=== PATIENT | female | born 1955 | race Caucasian/White ===

== ENCOUNTER 2024-06-05 19:00 | Observation (INO) | payer MEDICARE, OTHER ==
--- NOTE | 2024-06-05 19:30 | ED ---
General Adult HPI - General Chief complaint: Neuro Symptoms/Deficit Stated complaint: CVA Time Seen by Provider: 06/05/24 19:05 Source: patient, EMS, RN notes reviewed, old records reviewed Mode of arrival: EMS - History of Present Illness Initial comments: This is a 69-year-old female who presents from [facility] as a transfer. Patient this morning went to [facility] at 730 the morning because she had slurred speech and was a little off balance according to the . Patient has a history of A-fib and drinking. Patient was at [facility] and they thought she might be having a stroke her last known normal was last night about 10:00. Patient had a CT CT angiogram they were negative. Patient also with a CT of the chest and that was negative. Patient also at some time complained of chest pain and a workup for that was done as well. Patient states currently she has no chest pain and she has no complaints. According to the doctor when he called for transfer he stated that at 1 point the patient was bradycardic and he gave atropine and at another point the patient was hypertensive so I gave labetalol. Patient has no other compl aints at this time and she has no weakness numbness or slurred speech - Related Data Home Medications Medication Instructions Recorded Confirmed Metoprolol Tartrate [Lopressor] 50 mg PO BID 11/10/14 06/05/24 lisinopriL 40 mg PO DAILY 11/10/14 06/05/24 Docusate [Colace] 100 mg PO BID 06/05/24 06/05/24 Ketoconazole 2% Shampoo [Nizoral] 1 applic TOPICAL DAILY PRN 06/05/24 06/05/24 Krill Oil(Unknown Dose) 1 cap PO DAILY 06/05/24 06/05/24 Levothyroxine Sodium [Synthroid] 50 mcg PO AC-BRKFST 06/05/24 06/05/24 Meloxicam [Mobic] 15 mg PO DAILY 06/05/24 06/05/24 Pravastatin Sodium [Pravachol] 20 mg PO HS 06/05/24 06/05/24 Terazosin [Hytrin] 1 mg PO HS 06/05/24 06/05/24 Verapamil Sr [Isoptin Sr] 120 mg PO DAILY 06/05/24 06/05/24 buPROPion SR [Wellbutrin SR] 150 mg PO BID 06/05/24 06/05/24 busPIRone HCl [Buspar] 10 mg PO BID 06/05/24 06/05/24 methocarbamoL [Robaxin] 500 mg PO QID PRN 06/05/24 06/05/24 traZODone HCL [Desyrel] 50 mg PO HS 06/05/24 06/05/24 Allergies Allergy/AdvReac Type Severity Reaction Status Date / Time furosemide [From Lasix] Allergy Rash/Hives Verified 11/10/14 15:52 naproxen [From Naprosyn] Allergy Unknown Verified 11/10/14 15:49 aspirin AdvReac Unknown Uncoded 06/05/24 19:32 naproxen AdvReac Unknown Uncoded 06/05/24 19:32 norvasc AdvReac Unknown Uncoded 06/05/24 19:33 NSAIDs AdvReac Unknown Uncoded 06/05/24 19:32 Review of Systems ROS Statement: Those systems with pertinent positive or pertinent negative responses have been documented in the HPI. ROS Other: All systems not noted in ROS Statement are negative. 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 Patient is nontoxic and well- hydrated and is in no acute distress. ENT: Neck is soft and supple. No significant lymphadenopathy is noted. Oropharynx is clear. Moist mucous membranes. Neck has full range of motion without eliciting any pain. EYES: The sclera were anicteric and conjunctiva were pink and moist. Extraocular movements were intact and pupils were equal round and reactive to light. Eyelids were unremarkable. PULMONARY: Unlabored respirations. Good breath sounds bilaterally. No audible rales rhonchi or wheezing was noted. CARDIOVASCULAR: There is a regular rate and rhythm without any murmurs gallops or rubs. ABDOMEN: Soft and nontender with normal bowel sounds. SKIN: Skin is clear with no lesions or rashes and otherwise unremarkable. NEUROLOGIC: Patient is alert and oriented x3. Cranial nerves II through XII are grossly intact. Motor and sensory are also intact. Normal speech, volume and content. Symmetrical smile. Cerebellar exam grossly intact. Patient has an NIH of 0 MUSCULOSKELETAL: Normal extremities with adequate strength and full range of motion. No lower extremity swelling or edema. No calf tenderness. LYMPHATICS: No significant lymphadenopathy is noted PSYCHIATRIC: Normal psychiatric evaluation. Course Vital Signs 06/05/24 06/05/24 19:05 19:44 Temperature 98.2 F Pulse Rate 87 106 H Respiratory 18 17 Rate Blood Pressure 168/112 136/109 O2 Sat by Pulse 100 97 Oximetry Medical Decision Making - Medical Decision Making EKG is interpreted by myself and EKG shows atrial flutter at 90 bpm QRS is 104 QT interval 394 QTc is 441. Patient EKG shows no ST segment elevation or depression. Was pt. sent in by a medical professional or institution (, PA, STAVE GRADER, urgent care, hospital, or [facility]...) When possible be specific @ -[facility] sent the patient to us from her ER Did you speak to anyone other than the patient for history (EMS, parent, family, police, friend...)? What history was obtained from this source @ -The physician from the ER spoke with us prior to the patient's transfer and filled this in on the patient's presentation and clinical workup Did you review nursing and triage notes (agree or disagree)? Why? @ -I reviewed and agree with nursing and triage notes Were old charts reviewed (outside hosp., previous admission, EMS record, old EKG, old radiological studies, urgent care reports/EKG's, [facility] records)? Report findings @ -No old charts were reviewed Differential Diagnosis? @ -Differential CVA Ischemic stroke, hemorrhagic stroke, brain tumor, atypical migraine, Wernicke's encephalopathy, seizure, multiple sclerosis, meningitis, encephalitis, hypoglycemia, Guillain-Chaney, electrolytes disturbance, myasthenia gravis.... This is not meant to be an all-inclusive list differential Chest Pain: Stable Angina, Unstable Angina, STEMI, NSTEMI Aortic Dissection, Pneumothorax, Musculoskeletal, Esophageal Spasm GERD, Cholecystitis, Pancreatitis, Zoster, this is not meant to be an all-inclusive list. EKG interpreted by me (3pts min.). @ -As above X-rays interpreted by me (1pt min.). @ -None done CT interpreted by me (1pt min.). @ -None done U/S interpreted by me (1pt. min.). @ -None done What testing was considered but not performed or refused? (CT, X-rays, U/S, labs)? Why? @ -None What meds were considered but not given or refused? Why? @ -None Did you discuss the management of the patient with other professionals (professionals i.e. , PA, STAVE GRADER, lab, RT, psych nurse, social media content specialist, sas etl developer, teacher, aoc plans intelligence officer chief, patient case manager)? Give summary @ -I spoke with sound physicians agreed to admit the patient admit the patient wrote admitting orders Was smoking cessation discussed for >3mins.? @ -No Was critical care preformed (if so, how long)? @ -No Were there social determinants of health that impacted care today? How? (Homelessness, low income, unemployed, alcoholism, drug addiction, transportation, low edu. Level, literacy, decrease access to med. care, detention, rehab)? @ -No Was there de-escalation of care discussed even if they declined (Discuss DNR or withdrawal of care, Hospice)? DNR status @ -No What co-morbidities impacted this encounter? (DM, HTN, Smoking, COPD, CAD, Cancer, CVA, ARF, Chemo, Hep., AIDS, mental health diagnosis, sleep apnea, morbid obesity)? @ -None Was patient admitted / discharged? Hospital course, mention meds given and route, prescriptions, significant lab abnormalities, going to OR and other pertinent info. @ -I reviewed the CT brain and CT angio of the head and neck as well as x-rays and lab work from the other facility. All of which were relatively negative patient did have an alcohol at 13 when she arrived yesterday in the morning. There is documentation that the patient had a bradycardic episode she was given atropine and then later the patient was given labetalol. Patient currently has an NIH of 0 Undiagnosed new problem with uncertain prognosis? @ -No Drug Therapy requiring intensive monitoring for toxicity (Heparin, Nitro, Insulin, Cardizem)? @ -No Were any procedures done? @ -No Diagnosis/symptom? @ -TIA Acute, or Chronic, or Acute on Chronic? @ -Acute Uncomplicated (without systemic symptoms) or Complicated (systemic symptoms)? @ -Default Side effects of treatment? @ -No Exacerbation, Progression, or Severe Exacerbation? @ -No Poses a threat to life or bodily function? How? (Chest pain, USA, [place], pneumonia, PE, COPD, DKA, ARF, appy, cholecystitis, CVA, Diverticulitis, Homicidal, Suicidal, threat to staff... and all critical care pts) @ -Yes this can lead to a stroke and significant morbidity or mortality Diagnosis/symptom? @ -Alcohol abuse Acute, or Chronic, or Acute on Chronic? @ -Acute Uncomplicated (without systemic symptoms) or Complicated (systemic symptoms)? @ -Complicated Side effects of treatment? @ -None Exacerbation, Progression, or Severe Exacerbation] @ -No Poses a threat to life or bodily function? @ -No Diagnosis/symptom? @ -Hypertension Acute, or Chronic, or Acute on Chronic? @ -Acute Uncomplicated (without systemic symptoms) or Complicated (systemic symptoms)? @ -Complicated Side effects of treatment? @ -None Exacerbation, Progression, or Severe Exacerbation] @ -No Poses a threat to life or bodily function? @ -No Diagnosis/symptom? @ -Bradycardia Acute, or Chronic, or Acute on Chronic? @ -Acute Uncomplicated (without systemic symptoms) or Complicated (systemic symptoms)? @ -Complicated Side effects of treatment? @ -None Exacerbation, Progression, or Severe Exacerbation] @ -No Poses a threat to life or bodily function? @ -No - Lab Data Lab Results 06/05/24 Range/Units 19:44 Troponin I <0.012 (0.000-0.034) ng/mL Disposition Clinical Impression: Transient cerebral ischemia Disposition: ADMITTED IP TO THIS HOSP Referrals: Talisha Child MD [Primary Care Provider] - 1-2 days Time of Disposition: 20:31
[2024-06-05] MEDS: hydrALAZINE HCL 20 MG/ML 1 ML VIAL IVP STA (19:47)
[2024-06-05] MEDS: HYDROmorphone 0.5 MG/0.5 ML SYRINGE IVP STA (21:02)
[2024-06-05] MEDS: ASPIRIN 325 MG TAB PO STA (21:07)
[2024-06-05] MEDS ORDERED: methocarbamoL 500 MG TAB PO PRN (22:08)
[2024-06-05] MEDS: PRAVASTATIN SODIUM 20 MG TAB PO SCH ×2 (23:21→23:27)
[2024-06-05] MEDS: busPIRone HCl 10 MG TAB PO SCH (23:21)
[2024-06-05] MEDS: buPROPion SR 150 MG TABLET.ER PO SCH (23:21)
[2024-06-05] MEDS: traZODone HCL 50 MG TAB PO SCH (23:21)
--- NOTE | 2024-06-06 01:40 | P.HPIM ---
History of Present Illness H&P Date: 06/05/24 History of present illness; Patient is a 69-year-old female with A-fib without blood thinners, von Wi llebrand's disease type unknown, hyperlipidemia, hypertension, hypothyroidism, who presents from [facility] for TIA. Patient this morning went to [facility] at 7:30 the morning because she had slurred speech and was a little off balance according to the . She could not attest to weakness greater on one side compared to another. Patient was at [facility] and they thought she might be having a stroke her last known normal was last night about 10:00 PM. Duration of symptoms difficult quantify as patient says she still feels like she cannot speak well, however she says she feels overall better than this morning. She states she has had 5 similar episodes within the last month at times resulting in slurred speech and weakness. Patient had a CT brain an CT angiogram they were negative. Patient also with a CT of the chest and that was negative. Patient also at some time complained of chest pain and a workup for that was done as well. Patient states currently she has no chest pain and she has no complaints. She was also found to be bradycardic and given atropine, and hypertension treated with labetalol. Patient has no other complaints at this time and she has no weakness numbness or slurred speech. Currently patient reports absence of fever, chills, chest pain, palpitations, diaphoresis, dyspnea, cough, abdominal pain, nausea, vomiting, constipation, diarrhea, myalgia, dizziness, headache, loss of vision, and dysuria. Spoke with the ER physician, patient admission was accepted by internal medicine service for treatment. REVIEW OF SYSTEMS: Pertinent positives and negatives noted in HPI. PHYSICAL EXAMINATION: Vitals reviewed GENERAL: Resting comfortably in bed. EYES: PERRL, no scleral injection or icterus. No vision loss HENT: Normocephalic, atraumatic, hearing grossly intact, moist mucous membranes NECK: No tracheal deviation, full range of motion. CARDIOVASCULAR: S1 and S2 present. Irregular rhythm. No murmurs, rubs, or gallops. PULMONARY: Chest is clear to auscultation, no wheezing, rhonchi, or crackles. ABDOMEN: Soft, nontender, nondistended. No palpable organomegaly. MUSCULOSKELETAL: No apparent joint swelling and deformities. EXTREMITIES: No apparent cyanosis, clubbing. No pedal edema. NEUROLOGICAL: Alert and oriented. CN II through XII intact, 5 out of 5 strength in upper and lower extremities SKIN: No apparent rashes. ER FINDINGS: Labs significant for troponin <0.012 EKG independently interpreted showed atrial flutter, heart rate of 90, QTc 441, no ST segment elevation or depression seen, no T-wave inversions seen. Assessment and Plan: In summary, patient is a 69-year-old female with A-fib without blood thinners, von Willebrand's disease type unknown, hyperlipidemia, hypertension, hypot hyroidism, who presents from [facility] for TIA. #TIA CT head and CT angiogram head and neck unremarkable performed at [facility] - EKG with atrial flutter, heart rate of 90 HbA1c, Lipid panel ordered - Begin aspirin 81 mg qd, clopedogrel 75qd and atorvastatin 40mg qd for 21 days on d/c - continue home antihypertensive medication - echocardiogram with bubble study ordered - consult PT and OT for evaluation - NPO until speech evaluation Neurology consulted #Atrial flutter #History of A-fib Continuous cardiac monitoring Resume home medications Echocardiogram as above Chronic Medical Conditions #Essential hypertensionresume home medications tomorrow #A-fib #Von Willebrand's disease, type unknown #Hyperlidemia #Hypothyroidism #Anxiety/Depression Resume home medications DVT ppx: Subq Lovenox 40 meq daily Code status: Full code F: P.o. E: Replete as needed N: N.p.o. until speech evaluation A: Ambulatory Anticipated discharge place: Home Anticipated discharge time: 1 to 2 days Dictation was produced using [employer] dictation software. Please excuse any grammatical, word or spelling errors. I have seen and evaluated the patient today. I Discussed the case with the resident and agree with the resident's findings I edited the assessment and plan as necessary as documented in the resident's note. Past Medical History Past Medical History: Hypertension, Osteoarthritis (OA) Additional Past Medical History / Comment(s): Chavez Sullivanbrand disease History of Any Multi-Drug Resistant Organisms: None Reported Past Surgical History: Breast Surgery, Orthopedic Surgery Past Psychological History: Anxiety Smoking Status: Former smoker Past Alcohol Use History: Daily Past Drug Use History: None Reported Medications and Allergies Home Medications Medication Instructions Recorded Confirmed Type Metoprolol Tartrate [Lopressor] 50 mg PO BID 11/10/14 06/05/24 History lisinopriL 40 mg PO HS 11/10/14 06/05/24 History Docusate [Colace] 100 mg PO BID 06/05/24 06/05/24 History Ketoconazole 2% Shampoo [Nizoral] 1 applic TOPICAL DAILY PRN 06/05/24 06/05/24 History Krill Oil(Unknown Dose) 1 cap PO DAILY 06/05/24 06/05/24 History Levothyroxine Sodium [Synthroid] 50 mcg PO AC-BRKFST 06/05/24 06/05/24 History Meloxicam [Mobic] 15 mg PO DAILY 06/05/24 06/05/24 History Pravastatin Sodium [Pravachol] 20 mg PO HS 06/05/24 06/05/24 History Terazosin [Hytrin] 1 mg PO HS 06/05/24 06/05/24 History Tymlos 80mcg Injection 80 mcg SQ DIRECTED 06/05/24 06/05/24 History Verapamil Sr [Isoptin Sr] 120 mg PO HS 06/05/24 06/05/24 History buPROPion SR [Wellbutrin SR] 150 mg PO BID 06/05/24 06/05/24 History busPIRone HCl [Buspar] 10 mg PO BID 06/05/24 06/05/24 History methocarbamoL [Robaxin] 500 mg PO QID PRN 06/05/24 06/05/24 History traZODone HCL [Desyrel] 50 mg PO HS 06/05/24 06/05/24 History Allergies Allergy/AdvReac Type Severity Reaction Status Date / Time furosemide [From Lasix] Allergy Rash/Hives Verified 11/10/14 15:52 naproxen [From Naprosyn] Allergy Unknown Verified 11/10/14 15:49 aspirin AdvReac Unknown Uncoded 06/05/24 19:32 naproxen AdvReac Unknown Uncoded 06/05/24 19:32 norvasc AdvReac Unknown Uncoded 06/05/24 19:33 NSAIDs AdvReac Unknown Uncoded 06/05/24 19:32 Physical Exam Vitals: Vital Signs Temp Pulse Resp BP Pulse Ox 06/05/24 21:12 92 17 108/91 95 06/05/24 20:32 99 15 108/91 95 06/05/24 20:31 121/89 06/05/24 19:44 106 H 17 136/109 97 06/05/24 19:05 98.2 F 87 18 168/112 100 Intake and Output 06/05/24 06/05/24 06/05/24 06:59 14:59 22:59 Other: Weight 45.813 kg
[2024-06-06 02:45] LABS: Basophils % (A) 0 %; Eosinophils # (A) 0.3 k/uL (0-0.7); Eosinophils % (A) 4 %; HCT 32.9 % (34.0-46.0); HGB 10.8 gm/dL (11.4-16.0); Lymphocytes # (A) 1.1 k/uL (1.0-4.8); Lymphocytes % (A) 14 %; MCH 31.7 pg (25.0-35.0); MCHC 32.8 g/dL (31.0-37.0); MCV 96.7 fL (80.0-100.0); Mean Platelet Volume 7.9; Monocytes # (A) 0.5 k/uL (0-1.0); Monocytes % (A) 6 %; Neutrophils # (A) 6.2 k/uL (1.3-7.7); Neutrophils % (A) 75 %; Platelet Count 419 k/uL (150-450); RDW 13.5 % (11.5-15.5); WBC 8.2 k/uL (3.8-10.6)
[2024-06-06 02:54] LABS: ALT 15 U/L (4-34); AST 16 U/L (14-36); African American GFR (CKD) >90 (>60 ml/min/1.73 sqM); Albumin 3.5 g/dL (3.5-5.0); Alkaline Phosphatase 58 U/L (38-126); Anion Gap 8 mmol/L; Blood Urea Nitrogen 15 mg/dL (7-17); Calcium 9.4 mg/dL (8.4-10.2); Carbon Dioxide 23 mmol/L (22-30); Chloride 101 mmol/L (98-107); Glucose 94 mg/dL (74-99); Non-African American GFR(CKD) 79 (>60 ml/min/1.73 sqM); Potassium 4.1 mmol/L (3.5-5.1); Sodium 132 mmol/L (137-145); Total Bilirubin 0.4 mg/dL (0.2-1.3); Total Protein 5.8 g/dL (6.3-8.2)
[2024-06-06] MEDS: LEVOTHYROXINE 50 MCG TAB PO SCH (05:40)
[2024-06-06] MEDS ORDERED: ASPIRIN 325 MG TAB PO SCH (09:00)
[2024-06-06 09:08] LABS: Chol/HDL Ratio 2.22 Ratio
[2024-06-06 09:09] LABS: LDL Cholesterol,Calculated 44.7 mg/dL (0.0-131.0)
[2024-06-06] MEDS: MELOXICAM 7.5 MG TAB PO SCH (09:31)
[2024-06-06] MEDS: CLOPIDOGREL 75 MG TAB PO SCH (09:34)
[2024-06-06] MEDS: ATORVASTATIN 40 MG TAB PO SCH (09:34)
[2024-06-06] MEDS: ASPIRIN 81 MG PO SCH (09:34)
[2024-06-06] MEDS: DOCUSATE 100 MG CAP PO SCH (09:34)
[2024-06-06] MEDS: ENOXAPARIN 40 MG/0.4 ML SYRINGE SQ SCH (09:34)
[2024-06-06] MEDS ORDERED: APIXABAN 5 MG TAB PO SCH (11:45)
--- NOTE | 2024-06-06 11:59 | P.CRDCN ---
History of Present Illness Consult date: 06/06/24 Reason for Consult (text): A-fib, antiplatelet with von Willebrand History of present illness: This is a 69-year-old female patient of Dr. Sherrie Michelle with past medical history of mild to moderate mitral and aortic regurgitation, hypertension, dyslipidemia, atrial fibrillation, von Willebrand diagnosed 1987. We have been asked to evaluate the patient for atrial fibrillation with antiplatelet and von Willebrand. Patient gives history that she was on Coumadin many years ago greater than 10 years ago but due to "internal bleeding" she stopped taking the Coumadin. It is not clear whether this was advised by physician or patient did not on her own. She states she has never had a colonoscopy but has had black stools 1 to 2 weeks ago was dark stools. She was set up for colonoscopy in the past but the bleeding stopped and she decided not to go through with it. Patient presented to the hospital due to slurring of her speech that she had for a few times in the past but worst when she came in. She also states she had some shaking, nausea and chest pain. She also states that both arms were tingling. She denies history of CVA or TIA in the past. She denies abdominal pain. She states she sometimes has palpitations. She also has tightness in her chest. She sometimes has shortness of breath. No lower extremity edema. She occasionally has PND. She states she is not very active and is sedentary at home due to back problems. She is a non-smoker no caffeine abuse. She drinks at least a couple alcoholic beverages per day every day. Discussed with patient the necessity of alcohol cessation and she is not sure if she can do that but after discussion she is agreeable. Also discussed need for anticoagulation due to the atrial fibrillation and current diagnosis of TIA. Patient is willing to try anticoagulation but she verbalizes that she is sure she will have internal bleeding. Blood pressure currently 192/95, heart rate 106, pulse ox 95% on room air. Blood pressure readings have been labile. Patient has been started on aspirin and Plavix by attending. -EKG: Atrial fibrillation at 90 bpm. -Laboratory studies: Hemoglobin 10.8. Sodium 132, potassium 4.1, BUN 15 creatinine 0.78. Troponin negative x 3. Triglycerides 161, cholesterol 150, LDL 44. TSH 2.51. -Home cardiac medications: Lisinopril 40 mg at bedtime, Lopressor 50 mg twice daily, verapamil 120 mg at bedtime, also on levothyroxine. Review Of Systems: At the time of my exam: CONSTITUTIONAL: Denies fever or chills. HEENT: Denies blurred vision, vision changes, or eye pain. Denies hemoptysis CARDIOVASCULAR: Denies chest pain. Denies orthopnea. Denies PND. Denies palpitations RESPIRATORY: Denies shortness of breath. GASTROINTESTINAL: Denies abdominal pain. Denies nausea or vomiting. HEMATOLOGIC: Denies bleeding disorders. GENITOURINARY: Denies any blood in urine. SKIN: Denies puritis. Denies rash. Physical examination: Gen: This is a frail-appearing 69-year-old female VS: reviewed HEENT: Head is atraumatic, normocephalic. Pupils equal, round. Sclerae is anicteric. NECK: Supple. No JVD. LUNGS: Clear to auscultation. No wheezes or rhonchi. No intercostal retractions. HEART: Irregular rate and rhythm. Systolic ejection murmur, holosystolic murmur. ABDOMEN: Soft No tenderness. EXTREMITIES: No pedal edema. No calf tenderness. NEUROLOGICAL: Patient is awake, alert and oriented x3. Assessment: TIA Atrial fibrillation possibly permanent not on anticoagulation History of black stools Mild to moderate mitral and aortic regurgitation Hypertension, uncontrolled, labile readings Dyslipidemia Von Willebrand disease Plan: Resume patient's home cardiac medications with the following changes Lisinopril 20 mg twice daily Discontinue aspirin We will start Eliquis 5 mg twice daily once cleared by GI Recommend GI evaluation for history of black stools and need for anticoagulation Repeat CBC in the morning If patient is unable to tolerate anticoagulation, patient will be considered for Watchman procedure Alcohol cessation Obtain 2-D echocardiogram and Doppler study report Monitor blood pressure closely Further recommendations to follow based upon clinical course Thank you kindly for this consultation. Nurse practitioner note has been reviewed, I agree with documented findings and plan of care. Patient was seen and examined. Past Medical History Past Medical History: Hypertension, Osteoarthritis (OA) Additional Past Medical History / Comment(s): Von Natebrand disease History of Any Multi-Drug Resistant Organisms: None Reported Past Surgical History: Breast Surgery, Orthopedic Surgery Additional Past Surgical History / Comment(s): knee replacement, shoulder replacement Past Psychological History: Anxiety Smoking Status: Former smoker Past Alcohol Use History: Daily Past Drug Use History: None Reported Medications and Allergies Home Medications Medication Instructions Recorded Confirmed Type Metoprolol Tartrate [Lopressor] 50 mg PO BID 11/10/14 06/05/24 History lisinopriL 40 mg PO HS 11/10/14 06/05/24 History Docusate [Colace] 100 mg PO BID 06/05/24 06/05/24 History Ketoconazole 2% Shampoo [Nizoral] 1 applic TOPICAL DAILY PRN 06/05/24 06/05/24 History Krill Oil(Unknown Dose) 1 cap PO DAILY 06/05/24 06/05/24 History Levothyroxine Sodium [Synthroid] 50 mcg PO AC-BRKFST 06/05/24 06/05/24 History Meloxicam [Mobic] 15 mg PO DAILY 06/05/24 06/05/24 History Pravastatin Sodium [Pravachol] 20 mg PO HS 06/05/24 06/05/24 History Terazosin [Hytrin] 1 mg PO HS 06/05/24 06/05/24 History Tymlos 80mcg Injection 80 mcg SQ DIRECTED 06/05/24 06/05/24 History Verapamil Sr [Isoptin Sr] 120 mg PO HS 06/05/24 06/05/24 History buPROPion SR [Wellbutrin SR] 150 mg PO BID 06/05/24 06/05/24 History busPIRone HCl [Buspar] 10 mg PO BID 06/05/24 06/05/24 History methocarbamoL [Robaxin] 500 mg PO QID PRN 06/05/24 06/05/24 History traZODone HCL [Desyrel] 50 mg PO HS 06/05/24 06/05/24 History Allergies Allergy/AdvReac Type Severity Reaction Status Date / Time furosemide [From Lasix] Allergy Rash/Hives Verified 11/10/14 15:52 naproxen [From Naprosyn] Allergy Unknown Verified 11/10/14 15:49 aspirin AdvReac Unknown Uncoded 06/05/24 19:32 naproxen AdvReac Unknown Uncoded 06/05/24 19:32 norvasc AdvReac Unknown Uncoded 06/05/24 19:33 NSAIDs AdvReac Unknown Uncoded 06/05/24 19:32 Physical Exam Vitals: Vital Signs Temp Pulse Pulse Resp BP BP Pulse Ox 06/06/24 11:04 97.8 F 106 H 17 192/95 95 06/06/24 09:39 88 20 157/94 99 06/06/24 06:00 99 18 155/100 95 06/06/24 03:04 96 18 117/90 96 06/06/24 02:29 97 19 97 06/06/24 00:02 97.6 F 100 17 110/80 97 06/05/24 21:12 92 17 108/91 95 06/05/24 20:32 99 15 108/91 95 06/05/24 20:31 121/89 06/05/24 19:44 106 H 17 136/109 97 06/05/24 19:05 98.2 F 87 18 168/112 100 Intake and Output 06/05/24 06/06/24 06/06/24 22:59 06:59 14:59 Other: Weight 45.813 kg 45.813 kg Results 06/06/24 02:11 06/06/24 02:11 Cardiac Enzymes 06/05/24 06/05/24 06/06/24 Range/Units 19:44 23:04 02:11 AST (14-36) U/L Troponin I <0.012 <0.012 <0.012 (0.000-0.034) ng/mL 06/06/24 Range/Units 02:11 AST 16 (14-36) U/L Troponin I (0.000-0.034) ng/mL Lipids 06/06/24 Range/Units 02:11 Triglycerides 161.00 H (0.00-149.00) mg/dL Cholesterol 140.00 (0.00-200.00) mg/dL HDL Cholesterol 63.10 H (40.00-60.00) mg/dL Cholesterol/HDL Ratio 2.22 Ratio CBC 06/06/24 Range/Units 02:11 WBC 8.2 (3.8-10.6) k/uL RBC 3.40 L (3.80-5.40) m/uL Hgb 10.8 L (11.4-16.0) gm/dL Hct 32.9 L (34.0-46.0) % Plt Count 419 (150-450) k/uL Comprehensive Metabolic Panel 06/06/24 Range/Units 02:11 Sodium 132 L (137-145) mmol/L Potassium 4.1 (3.5-5.1) mmol/L Chloride 101 (98-107) mmol/L Carbon Dioxide 23 (22-30) mmol/L BUN 15 (7-17) mg/dL Creatinine 0.78 (0.52-1.04) mg/dL Glucose 94 (74-99) mg/dL Calcium 9.4 (8.4-10.2) mg/dL AST 16 (14-36) U/L ALT 15 (4-34) U/L Alkaline Phosphatase 58 (38-126) U/L Total Protein 5.8 L (6.3-8.2) g/dL Albumin 3.5 (3.5-5.0) g/dL Current Medications Generic Name Dose Route Start Last Admin Trade Name Freq PRN Reason Stop Dose Admin Aspirin 81 mg 06/06/24 09:00 06/06/24 09:38 Aspirin 81 Mg PO Not Given DAILY [facility] Atorvastatin Calcium 40 mg 06/06/24 09:00 06/06/24 09:34 Atorvastatin 40 Mg Tab PO 40 mg DAILY BRANDY Administration Bupropion HCl 150 mg 06/05/24 22:15 06/06/24 09:33 Bupropion Sr 150 Mg Tablet.Er PO 150 mg BID BRANDY Administration Buspirone HCl 10 mg 06/05/24 22:15 06/06/24 09:34 Buspirone Hcl 10 Mg Tab PO 10 mg BID BRANDY Administration Clopidogrel Bisulfate 75 mg 06/06/24 09:00 06/06/24 09:39 Clopidogrel 75 Mg Tab PO Not Given DAILY [facility] Docusate Sodium 100 mg 06/06/24 09:00 06/06/24 09:34 Docusate 100 Mg Cap PO 100 mg BID BRANDY Administration Enoxaparin Sodium 40 mg 06/06/24 09:00 06/06/24 09:38 Enoxaparin 40 Mg/0.4 Ml Syringe SQ Not Given DAILY [facility] Levothyroxine Sodium 50 mcg 06/06/24 06:00 06/06/24 05:40 Levothyroxine 50 Mcg Tab PO 50 mcg DAILY@0600 BRANDY Administration Lisinopril 40 mg 06/06/24 21:00 Lisinopril 20 Mg Tab PO HS [facility] Meloxicam 15 mg 06/06/24 09:00 06/06/24 09:32 Meloxicam 7.5 Mg Tab PO 15 mg DAILY BRANDY Administration Methocarbamol 500 mg 06/05/24 22:08 Methocarbamol 500 Mg Tab PO QID PRN Muscle Spasm Trazodone HCl 50 mg 06/05/24 22:15 06/05/24 23:21 Trazodone Hcl 50 Mg Tab PO 50 mg HS BRANDY Administration Verapamil HCl 120 mg 06/06/24 21:00 Verapamil Sr 120 Mg Tablet.Er PO HS BRANDY Intake and Output 06/05/24 06/06/24 06/06/24 22:59 06:59 14:59 Other: Weight 45.813 kg 45.813 kg Patient Weight 06/07/24 06:59 Weight 45.813 kg 06/06/24 02:11 06/06/24 02:11
[2024-06-06] MEDS ORDERED: LORazepam 1 MG TAB PO PRN (12:55)
[2024-06-06] MEDS ORDERED: LORazepam 2 MG/ML INJ IV PRN ×3 (12:55)
--- NOTE | 2024-06-06 14:45 | US ---
EXAMINATION TYPE: US carotid duplex BILAT DATE OF EXAM: 06/06/2024 COMPARISON: NONE CLINICAL INDICATION: Female, 69 years old with history of TIA; TIA Additional History: .... TECHNIQUE: Grayscale, color Doppler and spectral Doppler evaluation of the bilateral carotid systems and vertebral arteries. Indirect Doppler criteria was utilized. FINDINGS: EXAM MEASUREMENTS: RIGHT: Peak Systolic Velocity (PSV) cm/sec ----- Right CCA: 43.9 ----- Right ICA: 64.8 ----- Right ECA: 62.5 ICA/CCA ratio: 1.5 RIGHT: End Diastole cm/sec ----- Right CCA: 14.7 ----- Right ICA: 22.9 ----- Right ECA: 11.3 LEFT: Peak Systolic Velocity (PSV) cm/sec ----- Left CCA: 49.9 ----- Left ICA: 82.7 ----- Left ECA: 32.4 ICA/CCA ratio: 1.7 LEFT: End Diastole cm/sec ----- Left CCA: 18.1 ----- Left ICA: 41.3 ----- Left ECA: 5.7 VERTEBRALS (direction of flow): Right Vertebral: Antegrade Left Vertebral: Antegrade Rhythm: Arrhythmia STOCK PATCH SAWYER NOTES: No significant velocity elevations, minimal plaque, technically difficult exam Color Doppler imaging shows patency with blood flow throughout the carotid artery. Spectral waveforms are within normal limits. IMPRESSION: Right: No hemodynamically significant stenosis. Left: No hemodynamically significant stenosis. Criteria for Assigning % of Stenosis / Diameter reduction (Estimation based on the indirect measurements of the internal carotid artery velocities (ICA PSV). 1. Normal (no stenosis)=ICA PSV < 125 cm/s: ratio < 2.0: ICA EDV<40 cm/s. 2. Less than 50% stenosis=ICA PSV < 125 cm/s: ratio < 2.0: ICA EDV<40 cm/s. 3. 50 to 69% stenosis=ICA PSV of 125 to 230 cm/s: ration 2.0 ? 4.0: ICA EDV 40-100 cm/s. 4. Greater than 70% stenosis to near occlusion= ICA PSV > 230 cm/s: ratio > 4.0: ICA EDV > 100 cm/s. 5. Near occlusion= ICA PSV velocities may be low or undetectable: variable ratio and ICA EDV. 6. Total occlusion=unable to detect flow. [facility], , 06/06/2024 2:42 PM
[2024-06-06] MEDS: APIXABAN 5 MG TAB PO SCH (15:23)
[2024-06-06] MEDS: PANTOPRAZOLE 40 MG/10 ML VIAL IVP SCH (15:23)
[2024-06-06] MEDS: lisinopriL 20 MG TAB PO SCH (15:23)
--- NOTE | 2024-06-06 16:01 | P.CONS ---
History of Present Illness - Reason for Consult Consult date: 06/06/24 Anemia with previous history of dark stool Requesting physician: Tonio Storey - Chief Complaint Altered mental status changes, possible stroke - History of Present Illness This is a pleasant 69-year-old female who is a poor historian unclear as to why she was brought in. Family is at the bedside and stated that patient had difficulty with walking and slurred speech and as well as confusion and was brought to [facility] with concern of stroke versus TIA and she was transferred to this hospital for further evaluation. Her past medical history includes atrial fibrillation not on any anticoagulation, von Willebrand's disease, hyperlipidemia, hypertension, hypothyroidism, daily alcohol use with possible previous GI bleed after being put on anticoagulation following a surgery. Patient does take Mobic daily for arthritis pain. Patient states Monday or Monday she thinks she had had a dark stool, did not describe it as black and tarry and no foul order. Gastroenterology was consulted for anemia and history of black stools. She denies any abdominal pain, nausea or vomiting. Currently not on any anticoagulation. Was recommended by cardiology should be started on anticoagulation for atrial fibrillation and medical team and neurology were recommending aspirin and Plavix secondary to suspected TIA. Apparently brain CT had no acute findings. Brain MRI is pending. Unclear when patient's last upper endoscopy and colonoscopy was. No history in chart and patient again is a poor historian. Review of Systems REVIEW OF SYSTEMS: CARDIOPULMONARY: No chest pain or shortness of breath. Gastrointestinal: No abdominal pain. No nausea or vomiting. No hematemesis, coffee-ground emesis. No rectal bleeding, or melena. GENITOURINARY: No dysuria or hematuria. MUSCULOSKELETAL: Reports normal range of motion., Positive joint pain. SKIN: No rashes. No jaundice. ENDOCRINE: No chills, fevers. No excessive weight gain or loss. No polydipsia or polyuria. PSYCHIATRIC: Unremarkable. NEUROLOGY: Confusion, slurred speech gait imbalance. ENT: Vision unremarkable. CONSTITUTIONAL: No recent weight loss. No fever, chills, night sweats. Past Medical History Past Medical History: Hypertension, Osteoarthritis (OA) Additional Past Medical History / Comment(s): Von Willbrand disease History of Any Multi-Drug Resistant Organisms: None Reported Past Surgical History: Breast Surgery, Orthopedic Surgery Additional Past Surgical History / Comment(s): knee replacement, shoulder re placement Past Psychological History: Anxiety Smoking Status: Former smoker Past Alcohol Use History: Daily Past Drug Use History: None Reported Medications and Allergies Home Medications Medication Instructions Recorded Confirmed Type Metoprolol Tartrate [Lopressor] 50 mg PO BID 11/10/14 06/05/24 History lisinopriL 40 mg PO HS 11/10/14 06/05/24 History Docusate [Colace] 100 mg PO BID 06/05/24 06/05/24 History Ketoconazole 2% Shampoo [Nizoral] 1 applic TOPICAL DAILY PRN 06/05/24 06/05/24 History Krill Oil(Unknown Dose) 1 cap PO DAILY 06/05/24 06/05/24 History Levothyroxine Sodium [Synthroid] 50 mcg PO AC-BRKFST 06/05/24 06/05/24 History Meloxicam [Mobic] 15 mg PO DAILY 06/05/24 06/05/24 History Pravastatin Sodium [Pravachol] 20 mg PO HS 06/05/24 06/05/24 History Terazosin [Hytrin] 1 mg PO HS 06/05/24 06/05/24 History Tymlos 80mcg Injection 80 mcg SQ DIRECTED 06/05/24 06/05/24 History Verapamil Sr [Isoptin Sr] 120 mg PO HS 06/05/24 06/05/24 History buPROPion SR [Wellbutrin SR] 150 mg PO BID 06/05/24 06/05/24 History busPIRone HCl [Buspar] 10 mg PO BID 06/05/24 06/05/24 History methocarbamoL [Robaxin] 500 mg PO QID PRN 06/05/24 06/05/24 History traZODone HCL [Desyrel] 50 mg PO HS 06/05/24 06/05/24 History Allergies Allergy/AdvReac Type Severity Reaction Status Date / Time furosemide [From Lasix] Allergy Rash/Hives Verified 11/10/14 15:52 naproxen [From Naprosyn] Allergy Unknown Verified 11/10/14 15:49 aspirin AdvReac Unknown Uncoded 06/05/24 19:32 naproxen AdvReac Unknown Uncoded 06/05/24 19:32 norvasc AdvReac Unknown Uncoded 06/05/24 19:33 NSAIDs AdvReac Unknown Uncoded 06/05/24 19:32 Physical Exam Vitals: Vital Signs Temp Pulse Pulse Resp BP BP Pulse Ox 06/06/24 11:04 97.8 F 106 H 17 192/95 95 06/06/24 09:39 88 20 157/94 99 06/06/24 06:00 99 18 155/100 95 06/06/24 03:04 96 18 117/90 96 06/06/24 02:29 97 19 97 06/06/24 00:02 97.6 F 100 17 110/80 97 06/05/24 21:12 92 17 108/91 95 06/05/24 20:32 99 15 108/91 95 06/05/24 20:31 121/89 06/05/24 19:44 106 H 17 136/109 97 06/05/24 19:05 98.2 F 87 18 168/112 100 Intake and Output 06/05/24 06/06/24 06/06/24 22:59 06:59 14:59 Other: Weight 45.813 kg 45.813 kg General appearance: The patient is alert, oriented, appears in no acute distress. HET: Head is normocephalic and atraumatic. Conjunctiva pink. Sclera anicteric. Neck: Supple without lymphadenopathy. Abdomen: Soft, nontender, nondistended. Extremities: Normal skin color and turgor. No pedal edema Skin: No rashes, no jaundice Neurological: No focal deficits. Alert and oriented. Results CBC & Chem 7: 06/06/24 02:11 06/06/24 02:11 Labs: Abnormal Lab Results - Last 24 Hours (Table) 06/06/24 06/06/24 Range/Units 02:11 02:11 RBC 3.40 L (3.80-5.40) m/uL Hgb 10.8 L (11.4-16.0) gm/dL Hct 32.9 L (34.0-46.0) % Sodium 132 L (137-145) mmol/L Total Protein 5.8 L (6.3-8.2) g/dL Triglycerides 161.00 H (0.00-149.00) mg/dL HDL Cholesterol 63.10 H (40.00-60.00) mg/dL Assessment and Plan (1) Anemia Narrative/Plan: 69-year-old female admitted for TIA and stroke workup with history of atrial fibrillation and von Willebrand's disease currently not on any anticoagulation. Has some mild normocytic normochromic anemia with questionable reported dark stool about a week ago. Possible previous GI bleed many years ago on anticoagulation following a surgery and patient is not sure of what the findings were. Unclear when patient has had a last upper endoscopy or colonoscopy as she appears somewhat confused. Patient does not appear to have any gross signs of GI bleed. Nursing reports she has had 2 bowel movements that were normal brown. Again mild anemia normocytic normochromic could be secondary to anemia of chronic disease. Patient had been refusing anticoagulation secondary to fear of bleeding from her of on Willebrand's disease. Patient now agreeable to start anticoagulation, if patient should have GI bleed will consider possible en doscopic evaluation at that time. Otherwise no plans for endoscopic evaluation at this time. Current Visit: Yes Status: Acute Code(s): D64.9 - ANEMIA, UNSPECIFIED SNOMED Code(s): 693294709 (2) Transient cerebral ischemia Current Visit: Yes Status: Acute Code(s): G45.9 - TRANSIENT CEREBRAL ISCH EMIC ATTACK, UNSPECIFIED SNOMED Code(s): 371546469 (3) History of atrial fibrillation Current Visit: Yes Status: Acute Code(s): Z86.79 - PERSONAL HISTORY OF OTHER DISEASES OF THE CIRCULATORY SYSTEM SNOMED Code(s): 965487023 (4) Von Willebrands disease Current Visit: Yes Status: Acute Code(s): D68.00 - VON WILLEBRAND DISEASE, UNSPECIFIED SNOMED Code(s): 861249882 Plan: 1. Continue symptomatic and supportive care 2. Discussed with patient importance of anticoagulation as recommended by her ramp boss. Patient now agreeable to start anticoagulation per recommendations from cardiology and medical team 3. Monitor for signs of GI bleed once anticoagulation started 4. Protonix 40 mg daily for GI prophylaxis 5. No plans on endoscopic evaluation at this time Thank you for this consultation, we will continue to follow. Dr. Beth Michelle I agree with the dictator's note, documented as a scribe by Hermelinda Villanueva.
[2024-06-06] MEDS ORDERED: ACETAMINOPHEN TAB 325 MG TAB PO PRN (17:09)
[2024-06-06] MEDS ORDERED: LORazepam 1 MG/0.5 ML VIAL IV PRN ×3 (18:06→18:07)
--- NOTE | 2024-06-06 18:08 | P.PN ---
Subjective Progress Note Date: 06/06/24 Patient is a 69-year-old female with A-fib without blood thinners, von Willebrand's disease type unknown, hyperlipidemia, hypertension, hypothyroidism, who presents from [facility] for TIA. Patient this morning went to [facility] at 7:30 the morning because she had slurred speech and was a little off balance according to the . She could not attest to weakness greater on one side compared to another. Patient was at [facility] and they thought she might be having a stroke her last known normal was last night about 10:00 PM. Duration of symptoms difficult quantify as patient says she still feels like she cannot speak well, however she says she feels overall better than this morning. She states she has had 5 similar episodes within the last month at times resulting in slurred speech and weakness. Patient had a CT brain an CT angiogram they were negative. Patient also with a CT of the chest and that was negative. Patient also at some time complained of chest pain and a workup for that was done as well. Patient states currently she has no chest pain and she has no complaints. She was also found to be bradycardic and given atropine, and hypertension treated with labetalol. Patient has no other complaints at this time and she has no weakness numbness or slurred speech. Currently patient reports absence of fever, chills, chest pain, palpitations, diaphoresis, dyspnea, cough, abdominal pain, nausea, vomiting, constipation, diarrhea, myalgia, dizziness, headache, loss of vision, and dysuria. ER FINDINGS: Labs significant for troponin <0.012 EKG independently interpreted showed atrial flutter, heart rate of 90, QTc 441, no ST segment elevation or depression seen, no T-wave inversions seen. 06/06/2024 patient seen and examined at bedside. No acute events overnight. Labs show WBC 8.2, hemoglobin 10.8, MCV 96.7, platelet count 119,000, sodium 132, potassium 4.1, chloride 101, bicarb 23, BUN 15, creatinine 0.78, glucose 94, A1c 5.1, calcium 9.4, troponins negative, TSH 2.5. Liver enzymes all unremarkable. Review of systems: Pertinent positives and negatives as discussed in HPI, a complete review of systems was performed and all other systems are negative. Pertinent imaging and labs reviewed. Physical examination: Vital signs reviewed General: non toxic, no distress, appears at stated age Derm: no unusual rashes/lesions, warm Head: atraumatic, normocephalic, symmetric Eyes: EOMI, anicteric sclera, pupils equal round reactive to light ENT: Nose and ears atraumatic Neck: No cervical lymphadenopathy, trachea midline, supple Mouth: no lip lesion, mucus membranes moist Cardiovascular: S1S2 Irregular rhythm, no murmur Lungs: CTA bilateral, no rhonchi, no rales, no accessory muscle use Abdominal: soft, nontender to palpation, no guarding Ext: muscle strength 5 out of 5 in all 4 extremities grossly, no gross muscle atrophy, no contractures, positive dorsalis pedis pulse bilateral, no edema Neuro: CN II-XI grossly intact, no gross focal neuro deficits Psych: Alert and oriented x3, appropriate affect and mood Assessment and Plan: Patient is a 69-year-old female with A-fib without blood thinners, von Willebrand's disease type unknown, hyperlipidemia, hypertension, hypothyroidism, who presents from [facility] for TIA. #. CVA, suspected TIA CT head and CT angiogram head and neck unremarkable performed at [facility] - EKG with atrial flutter, heart rate of 90 HbA1c 5.1 - Lipid panel ordered - Held aspirin 81 mg qd and discontinued clopedogrel 75qd due to concerns for possible bleeding, discussed with GI and cardiology - Continue with atorvastatin 40mg qd - continue home antihypertensive medication - echocardiogram with bubble study ordered - consult PT and OT for evaluation - NPO until speech evaluation Neurology consulted #. Chronic alcohol use -Patient takes 2 tall beers daily for about 2 decades -Ativan per [facility] protocol -Thiamine 100 mg p.o. daily #Von Willebrand's disease, type unknown #. Black tarry stool -Patient admitted that she had black tarry stool prior to admission -GI consulted. Advised to be placed on Eliquis due to her risk of stroke. Plan to scope if she develops black tarry stool -Monitor CBC -Held VTE prophylaxis for now due to risk of bleeding #. Atrial flutter #. History of A-fib Continuous cardiac monitoring Resume home medications Echocardiogram as above -Cardiology consulted. Placed on Eliquis 5 mg p.o. twice daily Chronic Medical Conditions #. Essential hypertensionresume home medications tomorrow #. A-fib #Hyperlidemia #Hypothyroidism #Anxiety/Depression Resume home medications DVT ppx: SCDs Code status: Full code F: P.o. E: Replete as needed N: N.p.o. until speech evaluation A: Ambulatory Emily Dupree MD PGY-1/Equipment Tester Dictation was produced using [employer] dictation software. please excuse any grammatical, word or spelling errors. I have seen and evaluated the patient today. Discussed with the resident and agree with the residents finding and plan as documented in the resident's note. Changes highlighted in blue font. Objective - Vital Signs Vital signs: Vital Signs Temp 97.6 F 06/06/24 00:02 Pulse 99 06/06/24 06:00 Resp 18 06/06/24 06:00 BP 155/100 06/06/24 06:00 Pulse Ox 95 06/06/24 06:00 FiO2 Intake & Output 06/05/24 06/06/24 06/06/24 18:59 06:59 18:59 Weight 45.813 kg - Labs CBC & Chem 7: 06/06/24 02:11 06/06/24 02:11 Labs: Abnormal Lab Results - Last 24 Hours (Table) 06/06/24 06/06/24 Range/Units 02:11 02:11 RBC 3.40 L (3.80-5.40) m/uL Hgb 10.8 L (11.4-16.0) gm/dL Hct 32.9 L (34.0-46.0) % Sodium 132 L (137-145) mmol/L Total Protein 5.8 L (6.3-8.2) g/dL
[2024-06-06] MEDS: VERAPAMIL SR 120 MG TABLET.ER PO SCH (20:58)
[2024-06-06] MEDS ORDERED: lisinopriL 20 MG TAB PO SCH (21:00)
[2024-06-06] MEDS: METOPROLOL TARTRATE 50 MG TAB PO SCH (22:46)
[2024-06-07 03:54] LABS: Basophils % (A) 1 %; Eosinophils # (A) 0.3 k/uL (0-0.7); Eosinophils % (A) 5 %; HCT 33.3 % (34.0-46.0); HGB 10.7 gm/dL (11.4-16.0); Lymphocytes # (A) 1.2 k/uL (1.0-4.8); Lymphocytes % (A) 21 %; MCH 31.7 pg (25.0-35.0); MCHC 32.1 g/dL (31.0-37.0); MCV 98.9 fL (80.0-100.0); Mean Platelet Volume 7.4; Monocytes # (A) 0.5 k/uL (0-1.0); Monocytes % (A) 9 %; Neutrophils # (A) 3.6 k/uL (1.3-7.7); Neutrophils % (A) 61 %; Platelet Count 411 k/uL (150-450); RBC 3.37 m/uL (3.80-5.40); WBC 5.8 k/uL (3.8-10.6)
[2024-06-07 04:05] LABS: African American GFR (CKD) 76 (>60 ml/min/1.73 sqM); Anion Gap 7 mmol/L; Blood Urea Nitrogen 19 mg/dL (7-17); Calcium 9.3 mg/dL (8.4-10.2); Carbon Dioxide 25 mmol/L (22-30); Chloride 100 mmol/L (98-107); Glucose 91 mg/dL (74-99); Non-African American GFR(CKD) 66 (>60 ml/min/1.73 sqM); Potassium 4.4 mmol/L (3.5-5.1); Sodium 132 mmol/L (137-145)
[2024-06-07 07:52] VITALS: BP 142/89; PULSE 75; RESP 16; TEMP 97.8
[2024-06-07] MEDS ORDERED: lisinopriL 20 MG TAB PO SCH (09:00)
--- NOTE | 2024-06-07 09:09 | P.CNNES ---
History of Present Illness Consult date: 06/06/24 Requesting physician: Antonio Jackson Reason for Consult: TIA History of Present Illness: Patient is a 69-year-old right-handed female came to the hospital by ambulance yesterday at 7 PM for strokelike symptoms. Patient states that yesterday at 9 AM, she developed tingling in both arms, right more than left, could not speak well, couldn't walk, head was pounding, tightness in the chest. Patient spoke to her [id number] on the phone and she could not understand what she was saying. Patient's son and [id number]-[id number] were also present by bedside today (). They mentioned that about couple days before, she was having trouble breathing and felt very tired on Monday and Monday. She blamed it on her "leaky valve", or related to "starting new medication". She was shaky yesterday. She had trouble concentration, breathing trouble and was struggling. However yesterday the neurological symptoms were new onset as mentioned above.. As per EMS flow sheet, it appears patient was transferred from [facility]. It was reported patient was having slurred speech, unable to keep her balance and she was diagnosed with hypotension and bradycardia. EKG showed atrial fibrillation on the monitor with a regular pulse. Vital signs on arrival blood pressure 168/112, pulse rate 87 temperature 98.2. Her blood pressure has now normalized. But most recent is 192/95. Blood test shows slightly decreased hemoglobin 10.8 otherwise normal. CMP is normal, sodium 132. A1c 5.1. TSH normal. EKG showed atrial flutter/tachycardia. Patient has history of hypertension but no diabetes. She has never smoked. Home medications include metoprolol, lisinopril, Pravachol 20 mg, levothyroxine, BuSpar, trazodone, verapamil, Hytrin, Wellbutrin. Patient does not take any antiplatelet medication at home. Patient's family believes that mentally she is completely capable, with no signs of dementia. Today she feels better, but on sitting up, she was feeling slightly lightheaded. Review of Systems All pertinent positive and negative review of systems mentioned in the HPI. Otherwise unremarkable. Past Medical History Past Medical History: Hypertension, Osteoarthritis (OA) Additional Past Medical History / Comment(s): Von Willbrand disease History of Any Multi-Drug Resistant Organisms: None Reported Past Surgical History: Breast Surgery, Orthopedic Surgery Additional Past Surgical History / Comment(s): knee replacement, shoulder replacement Past Psychological History: Anxiety Smoking Status: Former smoker Past Alcohol Use History: Daily Past Drug Use History: None Reported Medications and Allergies Home Medications Medication Instructions Recorded Confirmed Type Metoprolol Tartrate [Lopressor] 50 mg PO BID 11/10/14 06/05/24 History lisinopriL 40 mg PO HS 11/10/14 06/05/24 History Docusate [Colace] 100 mg PO BID 06/05/24 06/05/24 History Ketoconazole 2% Shampoo [Nizoral] 1 applic TOPICAL DAILY PRN 06/05/24 06/05/24 History Krill Oil(Unknown Dose) 1 cap PO DAILY 06/05/24 06/05/24 History Levothyroxine Sodium [Synthroid] 50 mcg PO AC-BRKFST 06/05/24 06/05/24 History Meloxicam [Mobic] 15 mg PO DAILY 06/05/24 06/05/24 History Pravastatin Sodium [Pravachol] 20 mg PO HS 06/05/24 06/05/24 History Terazosin [Hytrin] 1 mg PO HS 06/05/24 06/05/24 History Tymlos 80mcg Injection 80 mcg SQ DIRECTED 06/05/24 06/05/24 History Verapamil Sr [Isoptin Sr] 120 mg PO HS 06/05/24 06/05/24 History buPROPion SR [Wellbutrin SR] 150 mg PO BID 06/05/24 06/05/24 History busPIRone HCl [Buspar] 10 mg PO BID 06/05/24 06/05/24 History methocarbamoL [Robaxin] 500 mg PO QID PRN 06/05/24 06/05/24 History traZODone HCL [Desyrel] 50 mg PO HS 06/05/24 06/05/24 History Allergies Allergy/AdvReac Type Severity Reaction Status Date / Time furosemide [From Lasix] Allergy Rash/Hives Verified 11/10/14 15:52 naproxen [From Naprosyn] Allergy Unknown Verified 11/10/14 15:49 aspirin AdvReac Unknown Uncoded 06/05/24 19:32 naproxen AdvReac Unknown Uncoded 06/05/24 19:32 norvasc AdvReac Unknown Uncoded 06/05/24 19:33 NSAIDs AdvReac Unknown Uncoded 06/05/24 19:32 Physical Examination - Vital Signs Vital Signs: Vital Signs Temp Pulse Pulse Resp BP BP Pulse Ox 06/06/24 11:04 97.8 F 106 H 17 192/95 95 06/06/24 09:39 88 20 157/94 99 06/06/24 06:00 99 18 155/100 95 06/06/24 03:04 96 18 117/90 96 06/06/24 02:29 97 19 97 06/06/24 00:02 97.6 F 100 17 110/80 97 06/05/24 21:12 92 17 108/91 95 06/05/24 20:32 99 15 108/91 95 06/05/24 20:31 121/89 06/05/24 19:44 106 H 17 136/109 97 06/05/24 19:05 98.2 F 87 18 168/112 100 Intake and Output 06/05/24 06/06/24 06/06/24 22:59 06:59 14:59 Other: Weight 45.813 kg 45.813 kg Patient is an elderly female, very pleasant, in no acute distress. Patient is constantly making jokes. Patient is alert awake oriented to time place and person. Speech and language functions are normal. Patient can name and repeat very well. No aphasia or dysarthria. Attention, concentration and fund of knowledge is adequate. On cranial nerve examination, pupils are equal, round and reacting to light, visual cohen are full on confrontation, with no neglect on double simultaneous stimulation. Extraocular muscles are intact with no nystagmus. Face is symmetric, tongue protrudes to the midline. Palatal elevation and sensation normal, hearing and shoulder shrug normal, facial sensation normal. On muscle strength testing, there is no pronator drift and the strength is normal in arms and legs distally and proximally. Deep tendon reflexes are symmetric 2 all over and plantars downgoing. Sensory to touch is equal with no neglect on double simultaneous stimulation. Cerebellar function showed no ataxia for [id number]-[id number] testing. No dysdiadochokinesia. No ataxia for wtlk-wm-[id number] testing on either side. Tone and bulk of muscles normal. Gait deferred.. On general examination, there is no carotid bruit or murmur, S1-S2 audible. Chest is clear on consultation. Abdomen is soft nontender. No organomegaly, bowel sounds present. Peripheral pulses are present. No peripheral edema. Results - Laboratory Findings CBC and BMP: 06/07/24 02:50 06/07/24 02:50 Abnormal Lab Findings: Abnormal Labs 06/06/24 06/06/24 02:11 02:11 RBC 3.40 L Hgb 10.8 L Hct 32.9 L Sodium 132 L Total Protein 5.8 L Triglycerides 161.00 H HDL Cholesterol 63.10 H Assessment and Plan Assessment: * Possible stroke/TIA manifesting with slurred speech, numbness, some confusion. Symptoms seems to have resolved. Current NIH stroke scale 0. * Atrial fibrillation * History of GI bleed * Mild to moderate MR and they are * Hypertension * Hyperlipidemia * Von Willebrand's disease Plan: * Patient has been started on Eliquis 5 mg twice a day by cardiology team. * Carotid Doppler revealed no hemodynamically significant stenosis in either ICA. Antegrade flow in both vertebral arteries. * Await 2-D echo * Primary team has initiated MRI of the brain. * Lipid panel with cholesterol 140, LDL 44, HDL 63 and triglycerides 161. Lipids are well controlled. Patient at home on pravastatin 20 mg, which will be continued. * Hemoglobin A1c 5.1. * Speech therapy has seen the patient, concerned about some cognitive imp airment. We will await MRI. * Neurology will follow. Thank you for the consult.
[2024-06-07] MEDS: THIAMINE 100 MG TAB PO SCH (09:34)
--- NOTE | 2024-06-07 10:15 | CA ---
Transthoracic Echo Report Name: Dionna Ricketts Age: 69 Gender: F : 1955 Exam Date: 06/06/2024 09:31 Exam Location: [facility] Ht (in): 59 Wt (lb): 101 Ordering Physician: Gabriele Zelaya MD Attending/Referring Phys: Lockstitch Zipper Setter Josiah Adrian RDCS Procedure CPT: Indications: CVA, w/ bubble study Cardiac Hx: A-fib, HTN Technical Quality: Fair Contrast 1: Definity Total Dose (mL): 2 Contrast 2: Agitated Saline Total Dose (mL): 10 MEASUREMENTS (Male / Female) Normal Values 2D ECHO LV Diastolic Diameter PLAX 4.3 cm 4.2 - 5.9 / 3.9 - 5.3 cm LV Systolic Diameter PLAX 2.9 cm IVS Diastolic Thickness 1.1 cm 0.6 - 1.0 / 0.6 - 0.9 cm LVPW Diastolic Thickness 0.9 cm 0.6 - 1.0 / 0.6 - 0.9 cm LV Relative Wall Thickness 0.4 RV Internal Dim ED PLAX 2.4 cm LVOT Diameter 2.0 cm Aortic Root Diameter 3.1 cm LA Systolic Diameter LX 3.5 cm 3.0 - 4.0 / 2.7 - 3.8 cm DOPPLER AI Peak Velocity 448.8 cm/s AI Peak Gradient 80.6 mmHg AI Pressure Half Time 665.4 ms Mitral E Point Velocity 100.4 cm/s Mitral A Point Velocity 98.8 cm/s Mitral E to A Ratio 1.0 MV Deceleration Time 120.0 ms MV E' Velocity 3.4 cm/s Mitral E to MV E' Ratio 29.8 TR Peak Velocity 294.5 cm/s TR Peak Gradient 34.7 mmHg Right Atrial Pressure 5.0 mmHg Pulmonary Artery Systolic Pressu 39.7 mmHg Right Ventricular Systolic Press 39.7 mmHg FINDINGS Left Ventricle Left ventricular ejection fraction is estimated at 55-60%. Mildly increased septal wall thickness. Right Ventricle Normal right ventricular size and function. Mild pulmonary hypertension. Right Atrium Normal right atrial size. Positive agitated saline bubble study for right to left shunt. Left Atrium Left atrial enlargement. Mitral Valve Structurally normal mitral valve. No mitral stenosis. Mild mitral regurgitation. Aortic Valve Trileaflet aortic valve. No aortic stenosis. Mild aortic regurgitation. Tricuspid Valve Structurally normal tricuspid valve. No tricuspid stenosis. Afnt-rq-niseezcs tricuspid regurgitation. Pulmonic Valve Structurally normal pulmonic valve. No pulmonic stenosis. Trace pulmonic regurgitation. Pericardium No pericardial effusion. Aorta Normal size aortic root and proximal ascending aorta. CONCLUSIONS Diagnosis TIA in the setting of hypertensive urgency, alcohol abuse and atrial fibrillation. 2D echo and Doppler with bubble study ordered Patient tachycardic, in atrial fibrillation Preserved LV size and function Left atrial enlargement No obvious intracardiac mass Positive bubble study Previewed by: Dr. Freddy Yi MD (Electronically Signed) Final Date: 07 June 2024 10:14
--- NOTE | 2024-06-07 10:39 | MR ---
EXAMINATION TYPE: MR brain wo con DATE OF EXAM: 06/07/2024 COMPARISON: Outside brain CT 2 days earlier HISTORY: TIA TECHNIQUE: Multiplanar, multisequence imaging of the brain and brainstem is performed without IV cont rast. FINDINGS: Diffusion weighted images demonstrate no evidence of a recent infarct or other diffusion abnormality. There is mild to moderate ventricular and sulcal prominence redemonstrated. There are few small scatt ered foci of T2 hyperintensity throughout the white matter bilaterally. There is a 8mm T2 hyperintens e lesion anterior superficial right parietal lobe axial image 20 noted for reference. Lesions are non specific in appearance and distribution. Midline structures demonstrate normal morphology. The craniocervical junction appears within normal limits. Normal vascular flow voids are present. Dominant left vertebral artery is seen. There is hypo plastic right A1 segment with filling of the right A2 segment due to patent anterior communicating ar mack, normal variant. Bilateral aphakia is again seen. The paranasal sinuses are clear. IMPRESSION: 1. No MRI evidence for recent infarct. 2. There is umei-kw-pywfivfz diffuse cerebral atrophy and mild probable chronic small vessel ischemic change noted. [facility], , 06/07/2024 10:37 AM
--- NOTE | 2024-06-07 11:01 | P.PN ---
Subjective Progress Note Date: 06/07/24 Reason for Consult (text): A-fib, antiplatelet with von Willebrand History of present illness: This is a 69-year-old female patient of Dr. Sherrie Michelle with past medical history of mild to moderate mitral and aortic regurgitation, hypertension, dyslipidemia, atrial fibrillation, von Willebrand diagnosed 1987. We have been asked to evaluate the patient for atrial fibrillation with antiplatelet and von Willebrand. Patient gives history that she was on Coumadin many years ago greater than 10 years ago but due to "internal bleeding" she stopped taking the Coumadin. It is not clear whether this was advised by physician or patient did not on her own. She states she has never had a colonoscopy but has had black stools 1 to 2 weeks ago was dark stools. She was set up for colonoscopy in the past but the bleeding stopped and she decided not to go through with it. Patient presented to the hospital due to slurring of her speech that she had for a few times in the past but worst when she came in. She also states she had some shaking, nausea and chest pain. She also states that both arms were tingling. She denies history of CVA or TIA in the past. She denies abdominal pain. She states she sometimes has palpitations. She also has tightness in her chest. She sometimes has shortness of breath. No lower extremity edema. She occasionally has PND. She states she is not very active and is sedentary at home due to back problems. She is a non-smoker no caffeine abuse. She drinks at least a couple alcoholic beverages per day every day. Discussed with patient the necessity of alcohol cessation and she is not sure if she can do that but a fter discussion she is agreeable. Also discussed need for anticoagulation due to the atrial fibrillation and current diagnosis of TIA. Patient is willing to try anticoagulation but she verbalizes that she is sure she will have internal bleeding. Blood pressure currently 192/95, heart rate 106, pulse ox 95% on room air. Blood pressure readings have been labile. Patient has been started on aspirin and Plavix by attending. -EKG: Atrial fibrillation at 90 bpm. -Laboratory studies: Hemoglobin 10.8. Sodium 132, potassium 4.1, BUN 15 creatinine 0.78. Troponin negative x 3. Triglycerides 161, cholesterol 150, LDL 44. TSH 2.51. -Home cardiac medications: Lisinopril 40 mg at bedtime, Lopressor 50 mg twice daily, verapamil 120 mg at bedtime, also on levothyroxine. 06/07 Patient seen and examined. Blood pressure readings remain elevated and valsartan will be added. No complaints of chest pain. Patient was evaluated by GI and cleared to start Eliquis. Patient has had no bleeding and no drop in her hemoglobin overnight. Blood pressure 142/89, pulse ox 75, pulse ox 98% on room air. Repeat blood work reveals hemoglobin 10.7, sodium 132, potassium 4.4, BUN 19 creatinine 0.9. Echocardiogram reveals EF of 55 to 60%, left atrial enlargement, no obvious intracardiac mass, positive bubble study. Physical examination: Gen: This is a frail-appearing 69-year-old female VS: reviewed HEENT: Head is atraumatic, normocephalic. Pupils equal, round. Sclerae is anicteric. NECK: Supple. No JVD. LUNGS: Clear to auscultation. No wheezes or rhonchi. No intercostal retractions. HEART: Irregular rate and rhythm. Systolic ejection murmur, holosystolic murmur. ABDOMEN: Soft No tenderness. EXTREMITIES: No pedal edema. No calf tenderness. NEUROLOGICAL: Patient is awake, alert and oriented x3. Assessment: TIA Atrial fibrillation possibly permanent not on anticoagulation History of black stools Mild to moderate mitral and aortic regurgitation Hypertension, uncontrolled, labile readings Dyslipidemia Von Willebrand disease Plan: Continue patient's home cardiac medications with the following changes Lisinopril 20 mg twice daily Discontinue aspirin Continue Eliquis 5 mg twice daily If patient is unable to tolerate anticoagulation, patient will be considered for Watchman procedure Alcohol cessation Patient is cleared for discharge from cardiology perspective. Cardiology will sign off this case and follow on an as-needed basis. Please reconsult for any new concerns. Patient may follow-up in the office in one to 2 weeks. Nurse practitioner note has been reviewed, I agree with documented findings and plan of care. Patient was seen and examined. Objective - Vital Signs Vital signs: Vital Signs Temp 97.8 F 06/07/24 07:51 Pulse 75 06/07/24 07:51 Resp 16 06/07/24 07:51 BP 142/89 06/07/24 07:51 Pulse Ox 98 06/07/24 07:51 FiO2 Intake & Output 06/06/24 06/07/24 06/07/24 18:59 06:59 18:59 Intake Total 240 540 Balance 240 540 Weight 45.813 kg 49 kg Intake: Oral 240 540 Other: Voiding Method Toilet # Voids 3 2 - Labs CBC & Chem 7: 06/07/24 02:50 06/07/24 02:50 Labs: Abnormal Lab Results - Last 24 Hours (Table) 06/06/24 06/07/24 06/07/24 Range/Units 02:11 02:50 02:50 RBC 3.37 L (3.80-5.40) m/uL Hgb 10.7 L (11.4-16.0) gm/dL Hct 33.3 L (34.0-46.0) % Sodium 132 L (137-145) mmol/L BUN 19 H (7-17) mg/dL Triglycerides 161.00 H (0.00-149.00) mg/dL HDL Cholesterol 63.10 H (40.00-60.00) mg/dL
--- NOTE | 2024-06-07 12:44 | P.PN ---
Subjective Progress Note Date: 06/07/24 Principal diagnosis: History of melena, anemia This is a pleasant 69-year-old female who is a poor historian unclear as to why she was brought in. Family is at the bedside and stated that patient had difficulty with walking and slurred speech and as well as confusion and was br ought to [facility] with concern of stroke versus TIA and she was transferred to this hospital for further evaluation. Her past medical history includes atrial fibrillation not on any anticoagulation, von Willebrand's disease, hyperlipidemia, hypertension, hypothyroidism, daily alcohol use with possible previous GI bleed after being put on anticoagulation following a surgery. Patient does take Mobic daily for arthritis pain. Patient states Monday or Monday she thinks she had had a dark stool, did not describe it as black and tarry and no foul order. Gastroenterology was consulted for anemia and history of black stools. She denies any abdominal pain, nausea or vomiting. Currently not on any anticoagulation. Was recommended by cardiology should be started on anticoagulation for atrial fibrillation and medical team and neurology were recommending aspirin and Plavix secondary to suspected TIA. Apparently brain CT had no acute findings. Brain MRI is pending. Unclear when patient's last upper endoscopy and colonoscopy was. No history in chart and patient again is a poor historian. 06/07/2024 Patient seen and examined today as a follow-up. She was started on Eliquis 5 mg twice daily yesterday and had 2 doses already. She states she has not had a bowel movement but she has not had any bleeding that she knows of. Denies any abdominal pain, nausea or vomiting. Hemoglobin stable 10.7 platelet count 411,000 Objective - Vital Signs Vital signs: Vital Signs Temp 97.5 F L 06/07/24 00:00 Pulse 97 06/07/24 02:00 Resp 17 06/07/24 00:00 BP 128/74 06/07/24 00:00 Pulse Ox 97 06/07/24 00:00 FiO2 Intake & Output 06/06/24 06/06/24 06/07/24 06:59 18:59 06:59 Intake Total 240 540 Balance 240 540 Weight 45.813 kg 45.813 kg Intake: Oral 240 540 Other: Voiding Method Toilet # Voids 3 1 - Exam General appearance: The patient is alert, oriented, appears in no acute distress. HET: Head is normocephalic and atraumatic. Conjunctiva pink. Sclera anicteric. Neck: Supple without lymphadenopathy. Abdomen: Soft, nontender, nondistended. Extremities: Normal skin color and turgor. No pedal edema Skin: No rashes, no jaundice Neurological: No focal deficits. Alert and oriented. - Labs CBC & Chem 7: 06/07/24 02:50 06/07/24 02:50 Labs: Abnormal Lab Results - Last 24 Hours (Table) 06/06/24 06/07/24 06/07/24 Range/Units 02:11 02:50 02:50 RBC 3.37 L (3.80-5.40) m/uL Hgb 10.7 L (11.4-16.0) gm/dL Hct 33.3 L (34.0-46.0) % Sodium 132 L (137-145) mmol/L BUN 19 H (7-17) mg/dL Triglycerides 161.00 H (0.00-149.00) mg/dL HDL Cholesterol 63.10 H (40.00-60.00) mg/dL Assessment and Plan (1) Anemia Narrative/Plan: 69-year-old female admitted for TIA and stroke workup with history of atrial fibrillation and von Willebrand's disease currently not on any anticoagulation. Has some mild normocytic normochromic anemia with questionable reported dark stool about a week ago. Possible previous GI bleed many years ago on an ticoagulation following a surgery and patient is not sure of what the findings were. Unclear when patient has had a last upper endoscopy or colonoscopy as she appears somewhat confused. Patient does not appear to have any gross signs of GI bleed. Nursing reports she has had 2 bowel movements that were normal brown. Again mild anemia normocytic normochromic could be secondary to anemia of chron ic disease. Patient had been refusing anticoagulation secondary to fear of bleeding from her of on Willebrand's disease. Patient now agreeable to start anticoagulation, if patient should have GI bleed will consider possible endoscopic evaluation at that time. Otherwise no plans for endoscopic owen luation at this time. Current Visit: Yes Status: Acute Code(s): D64.9 - ANEMIA, UNSPECIFIED SNOMED Code(s): 893448503 (2) Transient cerebral ischemia Current Visit: Yes Status: Acute Code(s): G45.9 - TRANSIENT CEREBRAL ISCHEMIC ATTACK, UNSPECIFIED SNOMED Code(s): 277250528 (3) History of atrial fibrillation Current Visit: Yes Status: Acute Code(s): Z86.79 - PERSONAL HISTORY OF OTHER DISEASES OF THE CIRCULATORY SYSTEM SNOMED Code(s): 035776150 (4) Von Willebrands disease Current Visit: Yes Status: Acute Code(s): D68.00 - VON WILLEBRAND DISEASE, UNSPECIFIED SNOMED Code(s): 076647157 Plan: 1. Continue symptomatic and supportive care 2. Anticoagulation was started with no signs of GI bleed. Stable hemoglobin. 3. Monitor for signs of GI bleed once anticoagulation started 4. Protonix 40 mg daily for GI prophylaxis 5. No plans on endoscopic evaluation at this time. Patient can follow-up with gastroenterology in outpatient setting if needed for drop in hemoglobin, concern for GI bleed. Thank you for this consultation, patient is cleared from gastroenterology. We will sign off at this time. Dr. Beth Michelle I agree with the dictator's note, documented as a scribe by Hermelinda Villanueva.
[2024-06-07] MEDS: VALSARTAN 160 MG TAB PO SCH (13:18)
--- NOTE | 2024-06-07 15:54 | P.DS ---
Providers Date of admission: 06/05/24 20:37 Attending physician: Ann Gonzalez MD Consults: 06/05/24 20:36 Consult Physician Routine Consulting Provider: Carl Sterling Consult Reason/Comments: tia Do you want consulting provider notified?: Yes 06/06/24 01:39 Consult Physician Routine Consulting Provider: Aniket Arshad Consult Reason/Comments: Afib, antiplatelet therapy with vonwillebrand Do you want consulting provider notified?: Yes, Notify in am 06/06/24 11:46 Consult Physician Routine Consulting Provider: Ave Michelle Consult Reason/Comments: anemia, hx black stools Do you want consulting provider notified?: Yes Primary care physician: Talisha Child MD Hospital Course: Hospital Course: Patient is a 69-year-old female with A-fib without blood thinners, von Willebrand's disease type unknown, hyperlipidemia, hypertension, hypothyroidism, who presents from [facility] for TIA. Patient went to [facility] at 7:30 3/5 in the morning because she had slurred speech and was a little off balance according to the . Patient had a CT brain an CT angiogram they were negative. Patient also with a CT of the chest and that was negative. In the ED, Labs significant for troponin <0.012 EKG independently interpreted showed atrial flutter, heart rate of 90, QTc 441, no ST segment elevation or depression seen, no T-wave inversions seen. Patient was admitted for evaluation of CVA with suspected TIA. Ordered cardiac monitoring, neurochecks, PT eval, OT eval, speech eval, high-dose aspirin, A1c, lipid panel, brain MRI. Neurology consulted. Due to concerns for bleeding, aspirin and clopidogrel be discontinued. Eliquis was resumed due to high risk of stroke. A1c normal, lipid panel showed elevated triglycerides and elevated HDL. Brain MRI showed no evidence for recent infarct, mild to moderate diffuse cerebral atrophy and mild probable chronic small vessel ischemic change. Patient admitted to history of black tarry stools due to bleeding disorder and GI was consulted. GI recommended to continue Eliquis and will consider colonoscopy if patient develops black tarry stool. Patient symptoms did not worsen throughout hospital stay. Patient developed no new complications throughout hospital stay. Patient is cleared for discharge today and was prescribed oral valsartan, atorvastatin and apixaban. Oral lisinopril and pravastatin was discontinued from home medications. Patient is advised to follow-up with house supervisor, neurologist and PCP on outpatient basis Final Diagnosis: #. CVA, suspected TIA #. Chronic alcohol use #. Von Willebrand's disease, type unknown #. Normocytic anemia, stable #. History of Black tarry stool #. Atrial flutter #. History of A-fib #. Essential hypertension #. Hyperlidemia #. Hypothyroidism #. Anxiety/Depression Physical examination: Vital signs reviewed General: non toxic, no distress Derm: no unusual rashes/lesions, warm Head: atraumatic, normocephalic, symmetric Eyes: EOMI, anicteric sclera, pupils equal round reactive to light ENT: Nose and ears atraumatic Neck: No cervical lymphadenopathy, trachea midline, supple Mouth: no lip lesion, mucus membranes moist Cardiovascular: S1S2 irregularly irregular, no murmur Lungs: CTA bilateral, no rhonchi, no rales, no accessory muscle use Abdominal: soft, nondistended, nontender to palpation, no guarding Ext: muscle strength 5 out of 5 in all 4 extremities grossly, no gross muscle atrophy, no contractures, positive dorsalis pedis pulse bilateral, no edema Neuro: CN II-XI grossly intact, no gross focal neuro deficits Psych: Alert, oriented, appropriate affect and mood I saw and evaluated the patient during the nunn and critical portions of this encounter, and discussed the case in detail with the resident author of this note, I agree with the Assessment and Plan, and my changes, if any, are highlighted in blue. Patient Condition at Discharge: Good Plan - Discharge Summary New Discharge Prescriptions: New Valsartan [Diovan] 160 mg PO BID #60 tab Atorvastatin [Lipitor] 40 mg PO DAILY #90 tab Apixaban [Eliquis] 5 mg PO BID #120 tab Continue Metoprolol Tartrate [Lopressor] 50 mg PO BID Meloxicam [Mobic] 15 mg PO DAILY Levothyroxine Sodium [Synthroid] 50 mcg PO AC-BRKFST Docusate [Colace] 100 mg PO BID busPIRone HCl [Buspar] 10 mg PO BID traZODone HCL [Desyrel] 50 mg PO HS Verapamil Sr [Isoptin Sr] 120 mg PO HS Terazosin [Hytrin] 1 mg PO HS methocarbamoL [Robaxin] 500 mg PO QID PRN PRN Reason: Muscle Spasm Ketoconazole 2% Shampoo [Nizoral] 1 applic TOPICAL DAILY PRN PRN Reason: scalp irritation buPROPion SR [Wellbutrin SR] 150 mg PO BID Krill Oil(Unknown Dose) 1 cap PO DAILY Tymlos 80mcg Injection 80 mcg SQ DIRECTED Discontinued lisinopriL 40 mg PO HS Pravastatin Sodium [Pravachol] 20 mg PO HS Discharge Medication List Metoprolol Tartrate [Lopressor] 50 mg PO BID 11/10/14 [History] Docusate [Colace] 100 mg PO BID 06/05/24 [History] Ketoconazole 2% Shampoo [Nizoral] 1 applic TOPICAL DAILY PRN 06/05/24 [History] Krill Oil(Unknown Dose) 1 cap PO DAILY 06/05/24 [History] Levothyroxine Sodium [Synthroid] 50 mcg PO AC-BRKFST 06/05/24 [History] Meloxicam [Mobic] 15 mg PO DAILY 06/05/24 [History] Terazosin [Hytrin] 1 mg PO HS 06/05/24 [History] Tymlos 80mcg Injection 80 mcg SQ DIRECTED 06/05/24 [History] Verapamil Sr [Isoptin Sr] 120 mg PO HS 06/05/24 [History] buPROPion SR [Wellbutrin SR] 150 mg PO BID 06/05/24 [History] busPIRone HCl [Buspar] 10 mg PO BID 06/05/24 [History] methocarbamoL [Robaxin] 500 mg PO QID PRN 06/05/24 [History] traZODone HCL [Desyrel] 50 mg PO HS 06/05/24 [History] Apixaban [Eliquis] 5 mg PO BID #120 tab 06/07/24 [Rx] Atorvastatin [Lipitor] 40 mg PO DAILY #90 tab 06/07/24 [Rx] Valsartan [Diovan] 160 mg PO BID #60 tab 06/07/24 [Rx] Follow up Appointment(s)/Referral(s): Talisha Child MD [Primary Care Provider] - 1-2 days Maxi Olson DO [STAFF PHYSICIAN] - 1 Week José Miguel Michelle MD [STAFF PHYSICIAN] - 06/19/24 1:45 pm Patient Instructions/Handouts: Transient Ischemic Attack (DC) Activity/Diet/Wound Care/Special Instructions: Follow up with PCP and Cardiology Follow up with Neurology if concerned for neurologic symptoms Discharge Disposition: HOME SELF-CARE
--- NOTE | 2024-06-08 09:13 | P.PN ---
Subjective Progress Note Date: 06/07/24 Patient was seen for a follow-up. Patient denies any new focal symptoms. Patient is laying comfortably in the bed. Her son was present by the bedside. He has not noticed any cognitive decline except for normal aging process. Lately she has been slightly confused, but probably from hospitalization. Objective - Vital Signs Vital signs: Vital Signs Temp 97.8 F 06/07/24 07:51 Pulse 75 06/07/24 07:51 Resp 16 06/07/24 07:51 BP 142/89 06/07/24 07:51 Pulse Ox 98 06/07/24 07:51 FiO2 Intake & Output 06/06/24 06/07/24 06/07/24 18:59 06:59 18:59 Intake Total 240 540 118 Balance 240 540 118 Weight 45.813 kg 49 kg Intake: Oral 240 540 118 Other: Voiding Method Toilet # Voids 3 2 - Exam Unchanged. - Labs CBC & Chem 7: 06/07/24 02:50 06/07/24 02:50 Labs: Abnormal Lab Results - Last 24 Hours (Table) 06/07/24 06/07/24 Range/Units 02:50 02:50 RBC 3.37 L (3.80-5.40) m/uL Hgb 10.7 L (11.4-16.0) gm/dL Hct 33.3 L (34.0-46.0) % Sodium 132 L (137-145) mmol/L BUN 19 H (7-17) mg/dL Assessment and Plan Assessment: * Possible stroke/TIA manifesting with slurred speech, numbness, some confusion. Symptoms seems to have resolved. Current NIH stroke scale 0. * Atrial fibrillation * History of GI bleed * Mild to moderate MR and they are * Hypertension * Hyperlipidemia * Von Willebrand's disease Plan: * Patient has been started on Eliquis 5 mg twice a day by cardiology team. * Carotid Doppler revealed no hemodynamically significant stenosis in either ICA. Antegrade flow in both vertebral arteries. * 2-D echo revealed LV EF 55-60%. Mildly increased septal wall thickness. Positive agitated saline bubble study for [id number] shunt. Mild to moderate TR. No intracardiac mass. * Cardiology on board. Will defer to I am regarding PFO. * MRI brain without contrast revealed no evidence for recent infarct. There is mild to moderate diffuse cerebral atrophy and mild probable chronic small vessel ischemic change. I personally reviewed MRI, I agree with the findings. * Lipid panel with cholesterol 140, LDL 44, HDL 63 and triglycerides 161. Lipids are well controlled. Patient at home on pravastatin 20 mg, which will be continued. * Hemoglobin A1c 5.1. * Speech therapy has seen the patient, concerned about some cognitive impairme nt. Spoke to patient's son, who has raised no concern about cognitive impairment. There were encouraged that if patient has any memory deficits noticed, then may follow up with neurology outpatient. * Neurologically clear for discharge.
== END 2024-06-07 13:34 | disposition home or self-care (01) ==
LOC: EC 19:00 → 3SCARD 20:37 → 6NMEDSUR 06-06 09:22
PROVIDERS: ADMIT Internal Medicine; ATTEND Internal Medicine
DX: R47.81 Slurred speech (principal); R20.0 Anesthesia of skin; R41.0 Disorientation, unspecified; D64.9 Anemia, unspecified; R19.5 Other fecal abnormalities; I48.91 Unspecified atrial fibrillation; I10 Essential (primary) hypertension; F41.9 Anxiety disorder, unspecified; D68.00 Von Willebrand disease, unspecified; E78.5 Hyperlipidemia, unspecified; I08.0 Rheumatic disorders of both mitral and aortic valves; E03.9 Hypothyroidism, unspecified; I48.92 Unspecified atrial flutter; F32.A Depression, unspecified; F10.90 Alcohol use, unspecified, uncomplicated; Z87.891 Personal history of nicotine dependence; Z79.1 Long term (current) use of non-steroidal anti-inflammatories (NSAID); Z79.890 Hormone replacement therapy; Z79.899 Other long term (current) drug therapy; Z88.6 Allergy status to analgesic agent
CPT/HCPCS: 96376; 96375; 96374; 99285; 36415; 93306; 97161; 97165; 92610; 92523; 97129; 80061; 80053; 80048; 84443; 84484 ×2; 85025 ×2; 83036; 93880; 70551; G0378 ×3; J0360; S0106 ×3; Q9957; J2470 ×2